=== PATIENT | male | born 2000 | race Caucasian/White ===

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

== ENCOUNTER 2023-01-04 19:26 | Emergency (ER) | payer BC ==
[2023-01-04 19:51] VITALS: RESP 18; TEMP 98.3
[2023-01-04 20:11] LABS: WBC,Urine <1 /hpf (0-5)
--- NOTE | 2023-01-04 20:28 | US ---
EXAMINATION TYPE: US scrotum with doppler. Grayscale and color Doppler Duplex imaging performed of jaime nugent scrotum. DATE OF EXAM: 01/04/2023 COMPARISON: NONE CLINICAL INDICATION: Male, 22 years old with history of pain; pain x 2 weeks. Pt states there is also pain while urinating EXAM MEASUREMENTS: TESTICLES: Right Testicle: 5.1 x 3.1 x 2.1 cm Left Testicle: 5.4 x 2.7 x 2.1 cm EPIDIDYMIS HEAD: Right Epididymis: 1.3 cm Left Epididymis: 1.1 cm 3 cystic areas found on epi head. Largest = 0.5 x 0.6 x 0.4cm Doppler performed to assess for testicular vascularity; good bilateral color flow and waveforms are s een. There is no evidence of testicular torsion. Presence of hydroceles: No Presence of varicoceles: Small on left side IMPRESSION: 1. Appropriate arterial and venous spectral waveforms to the testes. 2. Left varicocele.
--- NOTE | 2023-01-04 21:30 | ED ---
Male Urogenital HPI - General Chief complaint: Urogenital Stated complaint: abd pain,testicular torsion Time Seen by Provider: 01/04/23 19:49 Source: patient, RN notes reviewed, old records reviewed Mode of arrival: ambulatory Limitations: no limitations - History of Present Illness Initial comments: This is a 22-year-old male to the emergency department for evaluation of abdominal pain significant bowel pain testicular pain. Positive nausea no vomiting. Patient has persistent pain here in the emergency department. Patient has no medical history of similar issues. Denies any fevers. Patient denies age medication injury. MD Complaint: testicle pain, testicle swelling, dysuria, other (Abdominal pain) -: days(s) Location: right testicle, left testicle, abdomen Radiation: none Severity: moderate Severity scale (1-10): 4 Quality: aching Consistency: intermittent Improves with: none Worsens with: palpation Reports: swelling - Related Data Home Medications Medication Instructions Recorded Confirmed Atomoxetine HCl 25 mg PO DAILY 11/16/17 11/16/17 Allergies Allergy/AdvReac Type Severity Reaction Status Date / Time No Known Allergies Allergy Verified 01/04/23 19:33 Review of Systems ROS Statement: Those systems with pertinent positive or pertinent negative responses have been documented in the HPI. ROS Other: All systems not noted in ROS Statement are negative. Past Medical History Past Medical History: No Reported History Additional Past Medical History / Comment(s): pectus excavatum History of Any Multi-Drug Resistant Organisms: None Reported Past Surgical History: No Surgical Hx Reported Past Psychological History: ADD/ADHD Smoking Status: Never smoker Past Alcohol Use History: None Reported Past Drug Use History: None Reported General Exam Limitations: no limitations Course Vital Signs 01/04/23 01/04/23 19:29 22:54 Temperature 98.3 F Pulse Rate 66 79 Respiratory 18 18 Rate Blood Pressure 148/80 135/74 O2 Sat by Pulse 98 98 Oximetry - Reevaluation(s) Reevaluation #1: 01/04/23 Medical records reviewed Reevaluation #2: 01/04/23 Patient symptoms are improved Reevaluation #3: 01/04/23 Patient informed results and questions are answered Reevaluation #4: Was pt. sent in by a medical professional or institution (, PA, CASINO WORKER, urgent care, hospital, or fdc...) When possible be specific @ -no Did you speak to anyone other than the patient for history (EMS, parent, family, police, friend...)? What history was obtained from this source @ -no Did you review nursing and triage notes (agree or disagree)? Why? @ -agree Are old charts reviewed (outside hosp., previous admission, EMS record, old EKG, old radiological studies, urgent care reports/EKG's, fdc records)? Report findings @ -yes Differential Diagnosis (chest pain, altered mental status, abdominal pain women, abdominal pain men, vaginal bleeding, weakness, fever, dyspnea, syncope, headache, dizziness, GI bleed, back pain, seizure, CVA, palpatations, mental health, musculoskeletal)? @ -prior EKG interpreted by me (3pts min.). @ -no X-rays interpreted by me (1pt min.). @ -no CT interpreted by me (1pt min.). @ -yes U/S interpreted by me (1pt. min.). @ -yes What testing was considered but not performed or refused? (CT, X-rays, U/S, labs)? Why? @ -none What meds were considered but not given or refused? Why? @ -none Did you discuss the management of the patient with other professionals (professionals i.e. , PA, CASINO WORKER, lab, RT, psych nurse, social sciences chair, administrative coordinator, teacher, staff air defense officer, onsite case manager)? Give summary @ -no Was smoking cessation discussed for >3mins.? @ -no Was critical care preformed (if so, how long)? @ -no Were there social determinants of health that impacted care today? How? (Homelessness, low income, unemployed, alcoholism, drug addiction, transportation, low edu. Level, literacy, decrease access to med. care, care home, rehab)? @ -none Was there de-escalation of care discussed even if they declined (Discuss DNR or withdrawal of care, Hospice)? DNR status @ -no What co-morbidities impacted this encounter? (DM, HTN, Smoking, COPD, CAD, Cancer, CVA, ARF, Chemo, Hep., AIDS, mental health diagnosis, sleep apnea, morbid obesity)? @ -none Was patient admitted / discharged? Hospital course, mention meds given and route, prescriptions, significant lab abnormalities, going to OR and other pertinent info. @ - 22 male to the emergency department for evaluation abdominal pain, patient has scrotal pain with hydrocele on ultrasound. Patient says it is otherwise negative and can be discharged home Discharge Undiagnosed new problem with uncertain prognosis? @ -no Drug Therapy requiring intensive monitoring for toxicity (Heparin, Nitro, Insulin, Cardizem)? @ -no Were any procedures done? @ -no Diagnosis/symptom? @ -Hydrocele scrotum, abdominal pain Acute, or Chronic, or Acute on Chronic? @ -Acute Uncomplicated (without systemic symptoms) or Complicated (systemic symptoms)? @ -Complicated Side effects of treatment? @ -no Exacerbation, Progression, or Severe Exacerbation? @ -exacerbation Poses a threat to life or bodily function? How? (Chest pain, [place], VT, pneumonia, PE, COPD, DKA, ARF, appy, cholecystitis, CVA, Diverticulitis, Homicidal, Suicidal, threat to staff... and all critical care pts) @ -yes Reevaluation #5: Differential Abdominal Pain Men: Appendicitis, cholecystitis, diverticulosis, ischemic bowel, pancreatitis, hepatitis, UTI, gastroenteritis, AAA, incarcerated hernia, bowel obstruction, constipation, inflammatory bowel, hepatitis, peptic ulcer disease, splenic infarction, perforated viscus, testicular torsion, this is not meant to be an all-inclusive list Medical Decision Making - Medical Decision Making 22 male to the emergency department. Patient has normal testing here in the ER, ultrasound leading to likely patient's pain. Patient will follow-up with urology if pain persists - Lab Data Lab Results 01/04/23 Range/Units 19:45 Urine Color Colorless Urine Appearance Clear (Clear) Urine pH 6.5 (5.0-8.0) Ur Specific [place] 1.011 (1.001-1.035) Urine Protein Negative (Negative) Urine Glucose (UA) Negative (Negative) Urine Ketones Negative (Negative) Urine Blood Negative (Negative) Urine Nitrite Negative (Negative) Urine Bilirubin Negative (Negative) Urine Urobilinogen <2.0 (<2.0) mg/dL Ur Leukocyte Esterase Negative (Negative) Urine WBC <1 (0-5) /hpf - Radiology Data Radiology results: report reviewed (Ultrasound scrotum positive for varicocele, CT head and pelvis is negative for acute disease), image reviewed Disposition Clinical Impression: Varicocele, Abdominal pain Disposition: HOME SELF-CARE Condition: Good Instructions (If sedation given, give patient instructions): Varicocele (ED), Testicle Pain (ED), Abdominal Pain (ED) Is patient prescribed a controlled substance at d/c from ED?: No Referrals: None,Stated [Primary Care Provider] - 1-2 days Time of Disposition: 22:00
[2023-01-04 21:39] LABS: Appearance,Urine Clear (Clear); Bilirubin,Urine Negative (Negative); Blood,Urine Negative (Negative); Color,Urine Colorless; Glucose,Urine (UA) Negative (Negative); Ketones,Urine Negative (Negative); Leukocyte Esterase,Urine Negative (Negative); Nitrite,Urine Negative (Negative); PH, Urine 6.5 (5.0-8.0); Protein,Urine Negative (Negative); Specific Gravity,Urine 1.011 (1.001-1.035); Urobilinogen,Urine <2.0 mg/dL (<2.0)
--- NOTE | 2023-01-04 21:42 | CT ---
EXAMINATION TYPE: CT abdomen pelvis wo con CT DLP: 670.7 mGycm, Automated exposure control for dose reduction was used. DATE OF EXAM: 01/04/2023 9:15 PM COMPARISON: None. CLINICAL INDICATION:Male, 22 years old with history of pain; RLQ pain. About week ago started having pain in his testicles and now is having pain with urination. TECHNIQUE: Axial CT of the ;CT abdomen pelvis wo con;Sagittal and coronal reformats were created on a separate workstation. Contrast used: mL of , (none if empty) Oral contrast used: without Oral Contrast (none if empty) FINDINGS: LOWER CHEST: Unremarkable ABDOMEN LIVER: Unremarkable GALLBLADDER AND BILE DUCTS: Unremarkable. PANCREAS: Unremarkable. SPLEEN: Unremarkable. ADRENAL GLANDS: Unremarkable. KIDNEYS AND URETERS: No evidence of hydronephrosis or renal calculus. The ureters are unremarkable. PELVIS BLADDER: Unremarkable REPRODUCTIVE: Unremarkable. ABDOMEN & PELVIS STOMACH AND BOWEL: No evidence of bowel obstruction. As a moderate large amount stool in the right co naty. PERITONEUM/RETROPERITONEUM: No evidence of pneumoperitoneum or free fluid. VASCULATURE: No evidence of aortic aneurysm. MUSCULOSKELETAL: No acute osseous abnormalities LYMPH NODES: No gross evidence for lymphadenopathy. SOFT TISSUE/ABDOMINAL WALL: Fat-containing umbilical hernia IMPRESSION: 1. No definitive acute abdominal process. The appendix is visualized and extends superiorly medial a spect of the colon. No obstructive uropathy. 2. Moderate to large stool in the right colon.
[2023-01-04 23:14] VITALS: BP 135/74; PULSE 79
== END 2023-01-04 22:55 | disposition home or self-care (01) ==
LOC: EC 19:26
DX: I86.1 Scrotal varices (principal)
CPT/HCPCS: 74176; 76870; 81003; 93975; 99284